=== PATIENT | female | born 1985 | race American Indian/Alaskan Native ===

== ENCOUNTER 2016-07-31 09:26 | Inpatient (IN) | payer MEDICAID ==
[2016-07-31] MEDS ORDERED: MINERAL OIL PO PRN (10:18)
[2016-07-31] MEDS ORDERED: NARCAN 0.4 MG/1 ML IV PRN (10:18)
[2016-07-31] MEDS ORDERED: STADOL IV PRN (10:18)
[2016-07-31] MEDS ORDERED: ZOFRAN IV PRN (10:18)
[2016-07-31] MEDS ORDERED: XYLOCAINE 2% INFILTRATI ONE (10:18)
--- NOTE | 2016-07-31 10:32 | History and Physical Report ---
History of Present Illness Date of examination: 07/31/16 Date of admission: 07/31/2016 Chief complaint: Decreased Movement, Bloody Vaginal Mucous, and CTX Pains. History of present illness: Early entry to care; co-managed with [facility] due to maternal obesity. course complicated by lapses in care, URI in the second trimester, and two UTIs. Past History Past Medical History: no pertinent history Past Surgical History: no surgical history Family/Genetic History: diabetes (Father), heart disease (Father), hypertension (Father) Social history: no significant social history, single - Obstetrical History Expected Date of Delivery: 07/30/16 Actual Gestation: 40 Week(s) 1 Day(s) : 4 Para: 3 Number of Living Children: 3 #1 Infant Gender: Male year: 2,[birth year] Birthweight: 3.572 kg Method of Delivery: Vaginal Gestational age at delivery: 39 Complications: none #2 Infant Gender: Female Birthweight: 3.118 kg Method of Delivery: Vaginal Gestational age at delivery: 37 Complications: none #3 Gender: Male year: 2,011 Birthweight: 4.082 kg Method of Delivery: Vaginal Gestational age at delivery: 40 Complications: none Medications and Allergies Allergies Allergy/AdvReac Type Severity Reaction Status Date / Time No Known Allergies Allergy Unverified 07/31/16 09:41 Active Meds: Active Medications Butorphanol Tartrate (Stadol) 2 mg IV Q2H PRN PRN Reason: Pain , Severe (7-10) Ephedrine Sulfate (Ephedrine Sulfate) 10 mg IV Q2M PRN PRN Reason: Hypotension Stop: 07/31/16 10:23 Lactated Ringer's (Lactated Ringers) 1,000 mls @ 125 mls/hr IV DIRECT PATTY Oxytocin/Sodium Chloride (Pitocin/Ns 20 Unit/1000ml Drip) 20 units in 1,000 mls @ 125 mls/hr IV DIRECT PATTY Oxytocin/Sodium Chloride (Pitocin/Ns 30 Unit/500ml) 30 units in 500 mls @ 4 mls /hr IV TITR PATTY PRN Reason: Protocol Lidocaine (Xylocaine 2%) 20 ml INFILTRATI ONCE ONE Stop: 07/31/16 10:19 Mineral Oil (Mineral Oil) 30 ml PO QHS PRN PRN Reason: Constipation Naloxone HCl (Narcan 0.4 Mg/1 Ml) 0.1 mg IV Q2MIN PRN PRN Reason: Res Rate </= 8 or 02 SAT < 92% Ondansetron HCl (Zofran) 4 mg IV Q8H PRN PRN Reason: Nausea And Vomiting Terbutaline Sulfate (Brethine) 0.25 mg SUB-Q ONCE PRN PRN Reason: Hyperstimulation/Hypertonicity Stop: 07/31/16 10:19 Terbutaline Sulfate (Brethine) 0.25 mg IVP ONCE PRN PRN Reason: Hyperstimulation/Hypertonicity Stop: 07/31/16 10:19 Review of Systems All systems: negative - Vital Signs Vital signs: Vital Signs Pulse Pulse Ox 81 98 07/31/16 09:46 07/31/16 09:46 Temp Pulse Resp BP Pulse Ox 73 137/81 98 07/31/16 10:22 07/31/16 09:50 07/31/16 10:22 - Physical Exam Breasts: Positive: normal Cardiovascular: Regular rate Lungs: Positive: Clear to auscultation, Normal air movement Abdomen: Positive: normal appearance, soft, normal bowel sounds Genitourinary (Female): Positive: normal external genitalia, normal perenium Vagina: Positive: other (small amount of bloody show) Uterus: Positive: enlarged Anus/Rectum: Positive: normal perianal skin Extremities: Positive: edema (+2 non-pitting bilateral pedal edema) - Obstetrical FHR: category 1 Uterine Contraction Monitor Mode: External Cervical Dilatation: 3.5 (VTX, Intact) Cervical Effacement Percentage: 60 station: -3 Uterine Contraction Pattern: Irregular Uterine Contraction Intensity: Mild Results All other labs normal. Assessment and Plan A: IUP at 40 1/7 Weeks Category I Tracing Maternal obesity Decreased Movement Early Labor GBS Negative P: Admit to L&D per routine orders Pitocin Augmentation
[2016-07-31] MEDS ORDERED: BRETHINE SUB-Q PRN (11:17)
[2016-07-31] MEDS ORDERED: BRETHINE IVP PRN (11:17)
[2016-07-31] MEDS ORDERED: TORADOL ONE (11:30)
[2016-07-31] MEDS ORDERED: PITOCin/NS 20 UNIT/1000ML DRIP 20 UNITS/1,000 ML BAG IV SCH ×2 (12:00→23:45)
[2016-07-31] MEDS: LACTATED RINGERS 1,000 ML IV SCH ×3 (12:55→18:51)
[2016-07-31] MEDS: PITOCin/NS 30 UNIT/500ML 30 UNITS/500 ML BAG IV SCH ×2 (13:00→15:18)
--- NOTE | 2016-07-31 14:12 | Progress Note ---
Assessment and Plan A: IUP at 40 1/7 Weeks Category I Tracing Maternal obesity Meconium-Stained Fluids GBS Negative P: Internals x 2 Pitocin Augmentation Subjective - Subjective Date of service: 07/31/16 Interval history: Early entry to care; co-managed with [facility] due to maternal obesity. course complicated by lapses in care, URI in the second trimester, and two UTIs. Objective - Vital Signs Vital Signs: Vital Signs - 12hr 07/31/16 07/31/16 07/31/16 09:46 09:50 09:51 Temperature Pulse Rate 81 72 86 Pulse Rate [ Left] Respiratory Rate Blood Pressure 137/81 Blood Pressure [Left Arm] O2 Sat by Pulse 98 98 Oximetry 07/31/16 07/31/16 07/31/16 09:56 10:02 10:07 Temperature Pulse Rate 75 85 79 Pulse Rate [ Left] Respiratory Rate Blood Pressure Blood Pressure [Left Arm] O2 Sat by Pulse 97 97 97 Oximetry 07/31/16 07/31/16 07/31/16 10:12 10:17 10:22 Temperature Pulse Rate 93 H 78 73 Pulse Rate [ Left] Respiratory Rate Blood Pressure Blood Pressure [Left Arm] O2 Sat by Pulse 98 98 98 Oximetry 07/31/16 07/31/16 07/31/16 11:00 11:05 11:10 Temperature Pulse Rate 66 73 78 Pulse Rate [ Left] Respiratory Rate Blood Pressure Blood Pressure [Left Arm] O2 Sat by Pulse 97 98 98 Oximetry 07/31/16 07/31/16 07/31/16 11:15 11:19 11:25 Temperature Pulse Rate 72 71 76 Pulse Rate [ Left] Respiratory Rate Blood Pressure Blood Pressure [Left Arm] O2 Sat by Pulse 96 96 97 Oximetry 07/31/16 07/31/16 07/31/16 11:30 11:34 11:40 Temperature Pulse Rate 74 75 74 Pulse Rate [ Left] Respiratory Rate Blood Pressure Blood Pressure [Left Arm] O2 Sat by Pulse 97 96 97 Oximetry 07/31/16 07/31/16 07/31/16 11:45 11:50 11:55 Temperature Pulse Rate 65 74 72 Pulse Rate [ Left] Respiratory Rate Blood Pressure Blood Pressure [Left Arm] O2 Sat by Pulse 98 96 99 Oximetry 07/31/16 07/31/16 07/31/16 12:00 12:05 12:10 Temperature Pulse Rate 73 78 70 Pulse Rate [ Left] Respiratory Rate Blood Pressure Blood Pressure [Left Arm] O2 Sat by Pulse 99 97 98 Oximetry 07/31/16 07/31/16 07/31/16 12:15 12:19 12:23 Temperature Pulse Rate 74 74 90 Pulse Rate [ Left] Respiratory Rate Blood Pressure Blood Pressure [Left Arm] O2 Sat by Pulse 97 98 91 Oximetry 07/31/16 07/31/16 07/31/16 12:25 12:30 12:32 Temperature Pulse Rate 85 74 78 Pulse Rate [ Left] Respiratory Rate Blood Pressure Blood Pressure [Left Arm] O2 Sat by Pulse 96 97 94 Oximetry 07/31/16 07/31/16 07/31/16 12:35 12:38 12:39 Temperature Pulse Rate 78 77 80 Pulse Rate [ Left] Respiratory Rate Blood Pressure 147/75 Blood Pressure [Left Arm] O2 Sat by Pulse 92 93 Oximetry 07/31/16 07/31/16 07/31/16 12:40 12:45 12:50 Temperature Pulse Rate 87 79 78 Pulse Rate [ Left] Respiratory Rate Blood Pressure Blood Pressure [Left Arm] O2 Sat by Pulse 96 97 97 Oximetry 07/31/16 07/31/16 07/31/16 12:55 13:00 13:06 Temperature Pulse Rate 71 87 83 Pulse Rate [ Left] Respiratory Rate Blood Pressure Blood Pressure [Left Arm] O2 Sat by Pulse 99 98 98 Oximetry 07/31/16 07/31/16 07/31/16 13:07 13:11 13:16 Temperature 97.5 F L Pulse Rate 69 80 Pulse Rate [ 83 Left] Respiratory 16 Rate Blood Pressure Blood Pressure 147/75 [Left Arm] O2 Sat by Pulse 96 97 98 Oximetry 07/31/16 07/31/16 07/31/16 13:24 13:26 13:32 Temperature Pulse Rate 76 70 73 Pulse Rate [ Left] Respiratory Rate Blood Pressure Blood Pressure [Left Arm] O2 Sat by Pulse 80 L 99 96 Oximetry 07/31/16 07/31/16 07/31/16 13:44 13:45 13:50 Temperature Pulse Rate 76 Pulse Rate [ Left] Respiratory Rate Blood Pressure Blood Pressure [Left Arm] O2 Sat by Pulse 77 L 77 L 99 Oximetry 07/31/16 07/31/16 07/31/16 13:51 13:55 13:56 Temperature Pulse Rate 80 69 52 L Pulse Rate [ Left] Respiratory Rate Blood Pressure Blood Pressure [Left Arm] O2 Sat by Pulse 88 94 90 Oximetry 07/31/16 07/31/16 14:00 14:05 Temperature Pulse Rate 71 73 Pulse Rate [ Left] Respiratory Rate Blood Pressure Blood Pressure [Left Arm] O2 Sat by Pulse 99 98 Oximetry - Exam Breasts: normal Cardiovascular: Regular rate Lungs: Clear to auscultation, Normal air movement Abdomen: Present: normal appearance, soft, normal bowel sounds Uterus: Present: normal, firm, fundal height above umbilicus FHR: category 1 Uterine Contraction Monitor Mode: Internal Cervical Dilatation: 4 (Moderate amount of thick green meconium stained fluids upon AROM at 1400) Cervical Effacement Percentage: 70 station: -2 Uterine Contraction Pattern: Irregular Uterine Tone Measurement Phase: Resting Uterine Contraction Intensity: Moderate Extremities: edema
[2016-07-31] MEDS ORDERED: ePHEDrine SULFATE ONE (16:58)
[2016-07-31 17:17] LABS: Hemoglobin 9.7 gm/dl (10.1-14.3); Mean Corpuscular HGB Conc 31 % (30-34); Mean Corpuscular Volume 72 fl (79-97); Platelet Count 236 K/mm3 (140-440); Red Blood Count 4.27 M/mm3 (3.65-5.03); Red Cell Distribution Width 16.8 % (13.2-15.2)
[2016-07-31 17:20] LABS: Mean Corpuscular Hemoglobin 23 pg (28-32)
[2016-07-31] MEDS ORDERED: ePHEDrine SULFATE IV PRN (18:24)
[2016-07-31] MEDS ORDERED: NARCAN 2 MG/2 ML IV PRN (18:24)
--- NOTE | 2016-07-31 18:24 | Anesthesia Consultation ---
Anesthesia Consult and Med Hx Date of service: 07/31/16 - Airway Anesthetic Teeth Evaluation: Good ROM Head & Neck: Adequate Mental/Hyoid Distance: Adequate Mallampati Class: Class II Intubation Access Assessment: Good - Pulmonary Exam CTA: Yes - Cardiac Exam Cardiac Exam: No Murmur - Pre-Operative Health Status ASA Pre-Surgery Classification: ASA2 Proposed Anesthetic Plan: Epidural - Pulmonary Hx Asthma: No COPD: No Hx Pneumonia: No - Cardiovascular System Hx Hypertension: No - Central Nervous System Hx Seizures: No Hx Psychiatric Problems: No - Endocrine Hx Renal Disease: No Hx End Stage Renal Disease: No Hx Hypothyroidism: No Hx Hyperthyroidism: No - Hematic Hx Anemia: No Hx Sickle Cell Disease: No - Other Systems Hx Alcohol Use: No
[2016-07-31] MEDS: ePHEDrine SULFATE IV PRN ×2 (18:34→18:36)
[2016-07-31] MEDS ORDERED: fentaNYL-BUPIV 2 MCG/ML-0.125% 200 MCG/100 ML BAG EPIDURAL SCH (19:00)
[2016-07-31] MEDS ORDERED: PEPCID IV ONE ×2 (19:23→23:10)
[2016-07-31] MEDS ORDERED: REGLAN ONE (19:23)
[2016-07-31] MEDS ORDERED: BICITRA ONE (19:23)
[2016-07-31] MEDS ORDERED: ANCEF/STERILE WATER 2 GM/20 ML 2 GM/20 ML SYRINGE IV ONE (19:23)
[2016-07-31] MEDS ORDERED: NACL 0.9% 1000 ML 1,000 ML ONE (19:41)
--- NOTE | 2016-07-31 19:47 | Progress Note ---
Assessment and Plan A: IUP at 40 1/7 Weeks Category II Tracing Maternal obesity Meconium-Stained Fluids GBS Negative P: Amnioinfusion Continue Pitocin Augmentation Subjective - Subjective Date of service: 07/31/16 Interval history: Early entry to care; co-managed with [facility] due to maternal obesity. course complicated by lapses in care, URI in the second trimester, and two UTIs. Patient reports: other (Resting well under epidural) Objective - Vital Signs Vital Signs: Vital Signs - 12hr 07/31/16 07/31/16 07/31/16 09:46 09:50 09:51 Temperature Pulse Rate 81 72 86 Pulse Rate [ Left] Respiratory Rate Blood Pressure 137/81 Blood Pressure [Left Arm] O2 Sat by Pulse 98 98 Oximetry 07/31/16 07/31/16 07/31/16 09:56 10:02 10:07 Temperature Pulse Rate 75 85 79 Pulse Rate [ Left] Respiratory Rate Blood Pressure Blood Pressure [Left Arm] O2 Sat by Pulse 97 97 97 Oximetry 07/31/16 07/31/16 07/31/16 10:12 10:17 10:22 Temperature Pulse Rate 93 H 78 73 Pulse Rate [ Left] Respiratory Rate Blood Pressure Blood Pressure [Left Arm] O2 Sat by Pulse 98 98 98 Oximetry 07/31/16 07/31/16 07/31/16 11:00 11:05 11:10 Temperature Pulse Rate 66 73 78 Pulse Rate [ Left] Respiratory Rate Blood Pressure Blood Pressure [Left Arm] O2 Sat by Pulse 97 98 98 Oximetry 07/31/16 07/31/16 07/31/16 11:15 11:19 11:25 Temperature Pulse Rate 72 71 76 Pulse Rate [ Left] Respiratory Rate Blood Pressure Blood Pressure [Left Arm] O2 Sat by Pulse 96 96 97 Oximetry 07/31/16 07/31/16 07/31/16 11:30 11:34 11:40 Temperature Pulse Rate 74 75 74 Pulse Rate [ Left] Respiratory Rate Blood Pressure Blood Pressure [Left Arm] O2 Sat by Pulse 97 96 97 Oximetry 07/31/16 07/31/16 07/31/16 11:45 11:50 11:55 Temperature Pulse Rate 65 74 72 Pulse Rate [ Left] Respiratory Rate Blood Pressure Blood Pressure [Left Arm] O2 Sat by Pulse 98 96 99 Oximetry 07/31/16 07/31/16 07/31/16 12:00 12:05 12:10 Temperature Pulse Rate 73 78 70 Pulse Rate [ Left] Respiratory Rate Blood Pressure Blood Pressure [Left Arm] O2 Sat by Pulse 99 97 98 Oximetry 07/31/16 07/31/16 07/31/16 12:15 12:19 12:23 Temperature Pulse Rate 74 74 90 Pulse Rate [ Left] Respiratory Rate Blood Pressure Blood Pressure [Left Arm] O2 Sat by Pulse 97 98 91 Oximetry 07/31/16 07/31/16 07/31/16 12:25 12:30 12:32 Temperature Pulse Rate 85 74 78 Pulse Rate [ Left] Respiratory Rate Blood Pressure Blood Pressure [Left Arm] O2 Sat by Pulse 96 97 94 Oximetry 07/31/16 07/31/16 07/31/16 12:35 12:38 12:39 Temperature Pulse Rate 78 77 80 Pulse Rate [ Left] Respiratory Rate Blood Pressure 147/75 Blood Pressure [Left Arm] O2 Sat by Pulse 92 93 Oximetry 07/31/16 07/31/16 07/31/16 12:40 12:45 12:50 Temperature Pulse Rate 87 79 78 Pulse Rate [ Left] Respiratory Rate Blood Pressure Blood Pressure [Left Arm] O2 Sat by Pulse 96 97 97 Oximetry 07/31/16 07/31/16 07/31/16 12:55 13:00 13:06 Temperature Pulse Rate 71 87 83 Pulse Rate [ Left] Respiratory Rate Blood Pressure Blood Pressure [Left Arm] O2 Sat by Pulse 99 98 98 Oximetry 07/31/16 07/31/16 07/31/16 13:07 13:11 13:16 Temperature 97.5 F L Pulse Rate 69 80 Pulse Rate [ 83 Left] Respiratory 16 Rate Blood Pressure Blood Pressure 147/75 [Left Arm] O2 Sat by Pulse 96 97 98 Oximetry 07/31/16 07/31/16 07/31/16 13:24 13:26 13:32 Temperature Pulse Rate 76 70 73 Pulse Rate [ Left] Respiratory Rate Blood Pressure Blood Pressure [Left Arm] O2 Sat by Pulse 80 L 99 96 Oximetry 07/31/16 07/31/16 07/31/16 13:44 13:45 13:50 Temperature Pulse Rate 76 Pulse Rate [ Left] Respiratory Rate Blood Pressure Blood Pressure [Left Arm] O2 Sat by Pulse 77 L 77 L 99 Oximetry 07/31/16 07/31/16 07/31/16 13:51 13:55 13:56 Temperature Pulse Rate 80 69 52 L Pulse Rate [ Left] Respiratory Rate Blood Pressure Blood Pressure [Left Arm] O2 Sat by Pulse 88 94 90 Oximetry 07/31/16 07/31/16 07/31/16 14:00 14:05 14:10 Temperature Pulse Rate 71 73 78 Pulse Rate [ Left] Respiratory Rate Blood Pressure Blood Pressure [Left Arm] O2 Sat by Pulse 99 98 99 Oximetry 07/31/16 07/31/16 07/31/16 14:15 14:20 14:25 Temperature Pulse Rate 71 64 65 Pulse Rate [ Left] Respiratory Rate Blood Pressure Blood Pressure [Left Arm] O2 Sat by Pulse 98 100 99 Oximetry 07/31/16 07/31/16 07/31/16 14:30 14:35 14:40 Temperature Pulse Rate 65 70 74 Pulse Rate [ Left] Respiratory Rate Blood Pressure Blood Pressure [Left Arm] O2 Sat by Pulse 98 98 97 Oximetry 07/31/16 07/31/16 07/31/16 14:45 14:50 14:55 Temperature Pulse Rate 69 73 75 Pulse Rate [ Left] Respiratory Rate Blood Pressure Blood Pressure [Left Arm] O2 Sat by Pulse 98 97 97 Oximetry 07/31/16 07/31/16 07/31/16 15:00 15:05 15:10 Temperature Pulse Rate 72 65 74 Pulse Rate [ Left] Respiratory Rate Blood Pressure Blood Pressure [Left Arm] O2 Sat by Pulse 98 98 98 Oximetry 07/31/16 07/31/16 07/31/16 15:15 15:20 15:25 Temperature Pulse Rate 72 74 63 Pulse Rate [ Left] Respiratory Rate Blood Pressure Blood Pressure [Left Arm] O2 Sat by Pulse 98 97 97 Oximetry 07/31/16 07/31/16 07/31/16 15:30 15:35 15:39 Temperature Pulse Rate 65 71 69 Pulse Rate [ Left] Respiratory Rate Blood Pressure Blood Pressure [Left Arm] O2 Sat by Pulse 98 97 97 Oximetry 07/31/16 07/31/16 07/31/16 15:44 15:50 15:55 Temperature Pulse Rate 63 79 77 Pulse Rate [ Left] Respiratory 20 Rate Blood Pressure Blood Pressure [Left Arm] O2 Sat by Pulse 96 98 98 Oximetry 07/31/16 07/31/16 07/31/16 16:17 18:14 18:15 Temperature Pulse Rate 75 99 H 88 Pulse Rate [ Left] Respiratory Rate Blood Pressure 130/60 211/93 139/71 Blood Pressure [Left Arm] O2 Sat by Pulse 96 Oximetry 07/31/16 07/31/16 07/31/16 18:18 18:21 18:23 Temperature Pulse Rate 101 H 102 H 92 H Pulse Rate [ Left] Respiratory Rate Blood Pressure 118/53 105/50 99/50 Blood Pressure [Left Arm] O2 Sat by Pulse 99 Oximetry 07/31/16 07/31/16 07/31/16 18:24 18:25 18:27 Temperature Pulse Rate 86 109 H 103 H Pulse Rate [ Left] Respiratory Rate Blood Pressure 89/41 75/35 Blood Pressure [Left Arm] O2 Sat by Pulse 99 Oximetry 07/31/16 07/31/16 07/31/16 18:29 18:31 18:33 Temperature Pulse Rate 88 104 H 103 H Pulse Rate [ Left] Respiratory Rate Blood Pressure 77/42 76/39 81/43 Blood Pressure [Left Arm] O2 Sat by Pulse 100 Oximetry 07/31/16 07/31/16 07/31/16 18:34 18:35 18:36 Temperature Pulse Rate 95 H 87 69 Pulse Rate [ Left] Respiratory Rate Blood Pressure 93/51 114/57 Blood Pressure [Left Arm] O2 Sat by Pulse 99 Oximetry 07/31/16 07/31/16 07/31/16 18:38 18:39 18:41 Temperature Pulse Rate 74 78 79 Pulse Rate [ Left] Respiratory Rate Blood Pressure 132/60 126/56 Blood Pressure [Left Arm] O2 Sat by Pulse 100 Oximetry 07/31/16 07/31/16 07/31/16 18:43 18:44 18:45 Temperature Pulse Rate 90 76 91 H Pulse Rate [ Left] Respiratory Rate Blood Pressure 116/56 115/57 Blood Pressure [Left Arm] O2 Sat by Pulse 100 Oximetry 07/31/16 07/31/16 07/31/16 18:47 18:49 18:52 Temperature Pulse Rate 85 94 H 79 Pulse Rate [ Left] Respiratory Rate Blood Pressure 116/57 123/56 Blood Pressure [Left Arm] O2 Sat by Pulse 100 100 Oximetry 07/31/16 07/31/16 07/31/16 18:53 18:57 18:58 Temperature Pulse Rate 83 78 90 Pulse Rate [ Left] Respiratory Rate Blood Pressure 114/56 113/56 Blood Pressure [Left Arm] O2 Sat by Pulse 100 Oximetry 07/31/16 07/31/16 07/31/16 19:02 19:06 19:09 Temperature Pulse Rate 85 122 H 66 Pulse Rate [ Left] Respiratory Rate Blood Pressure 147/85 Blood Pressure [Left Arm] O2 Sat by Pulse 99 100 Oximetry 07/31/16 07/31/16 07/31/16 19:14 19:16 19:19 Temperature Pulse Rate 77 78 83 Pulse Rate [ Left] Respiratory Rate Blood Pressure 141/63 Blood Pressure [Left Arm] O2 Sat by Pulse 100 100 Oximetry 07/31/16 07/31/16 07/31/16 19:24 19:29 19:34 Temperature Pulse Rate 78 76 69 Pulse Rate [ Left] Respiratory Rate Blood Pressure Blood Pressure [Left Arm] O2 Sat by Pulse 100 100 100 Oximetry 07/31/16 07/31/16 19:36 19:39 Temperature Pulse Rate 74 75 Pulse Rate [ Left] Respiratory Rate Blood Pressure 125/59 Blood Pressure [Left Arm] O2 Sat by Pulse 100 Oximetry - Exam Breasts: normal Cardiovascular: Regular rate Lungs: Clear to auscultation, Normal air movement Abdomen: Present: normal appearance, soft, normal bowel sounds Uterus: Present: normal, firm, fundal height above umbilicus FHR: category 2 FHR comments: FHR: 150, moderate varability, +accels, +multiple varabile decels, CTX are irregular Uterine Contraction Monitor Mode: Internal Cervical Dilatation: 4 Cervical Effacement Percentage: 70 station: -2 Uterine Contraction Pattern: Irregular Uterine Contraction Intensity: Mild Extremities: edema - Labs Labs: Abnormal Labs 07/31/16 11:25 Hgb 9.7 L MCV 72 L MCH 23 L RDW 16.8 H Laboratory Results - last 24 hr 07/31/16 07/31/16 11:25 11:25 WBC 10.0 RBC 4.27 Hgb 9.7 L Hct 31.0 MCV 72 L MCH 23 L MCHC 31 RDW 16.8 H Plt Count 236 Blood Type A POSITIVE Antibody Screen TNR SUREKHA Antibody Screen Negative
[2016-07-31] MEDS ORDERED: NACL 0.9% 1000 ML 1,000 ML VG SCH (20:00)
[2016-07-31] MEDS ORDERED: TYLENOL PO PRN (21:01)
[2016-07-31] MEDS ORDERED: POLYCILLIN/NS 2 GM/100 ML 2 GM/100 ML BAG IV ONE (22:00)
[2016-07-31] MEDS ORDERED: NACL P/F VIAL (10 ML) 10 ML ONE (22:26)
[2016-07-31] MEDS ORDERED: BICITRA PO ONE (23:10)
[2016-07-31] MEDS ORDERED: WATER FOR IRRIG STERILE IR ONE (23:10)
[2016-07-31] MEDS ORDERED: REGLAN IV ONE (23:10)
[2016-07-31] MEDS ORDERED: NACL 0.9% IR ONE (23:10)
[2016-07-31] MEDS ORDERED: MORPHINE ONE ×2 (23:37)
[2016-07-31] MEDS ORDERED: ANCEF/STERILE WATER 2 GM/20 ML 2 GM/20 ML SYRINGE IV NR (23:45)
[2016-07-31] MEDS ORDERED: LACTATED RINGERS 1,000 ML IV SCH (23:45)
[2016-07-31] MEDS ORDERED: XYLOCAINE MPF 2% ONE ×4 (23:46)
[2016-07-31] MEDS ORDERED: NEO SYNEPHRINE ONE (23:57)
[2016-07-31 23:58] LABS: ISTAT Base Excess -5; ISTAT HCO3 22.3; ISTAT PCO2 51.6 (35-45); ISTAT PH 7.243 (7.35-7.45); ISTAT PO2 14 (80-105); ISTAT SO2 13; ISTAT TCO2 24
[2016-07-31 23:58] LABS: ISTAT Base Excess -7; ISTAT HCO3 20.6; ISTAT PH 7.258 (7.35-7.45); ISTAT PO2 22 (80-105); ISTAT SO2 29; ISTAT TCO2 22
--- NOTE | 2016-08-01 00:28 | Operative Report ---
Operative Report Operative Report: Date of procedure: 07/31/2016 Pre-operative diagnosis: 1. Intrauterine at 40-1/7 weeks 2. Nonreassuring surveillance 3. Meconium fluid 4. Morbid obesity Post-operative diagnosis: Same Procedure name(s): Primary low transverse section Surgeon: Donte Reid MD [employer] Rebuilder: None Anesthesia: Epidural anesthesia by Dr. Li Geiger EBL: 1000 mL's Findings: A 3631 g male infant Apgars 8 at 1 minute 9 at 5 minutes. Nuchal cord 1. Thick meconium fluid. Normal uterus. Normal tubes and ovaries bilaterally. Procedure: After the patient was prepped and draped in usual sterile fashion, and after satisfactory level of epidural anesthesia was obtained, the skin knife was used to make a transverse skin incision. The incision was excised down to layer of the fascia, which was nicked in the midline and extended laterally using the Bovie cautery. The rectus muscles were dissected off the rectus fascia both superiorly and inferiorly. The rectus bellies in the midline, and the peritoneum was entered under direct visualization. The peritoneal incision was extended superiorly and inferiorly. A bladder flap was created and the bladder blade was then placed. The uterus was scored in a curvilinear linear fashion, entered in the midline revealing meconium amniotic fluid. The 's head was delivered onto the surgical field, nuchal cord 1 reduced, and the oropharynx and nasopharynx were bulb suctioned. The rest of the infant's body was delivered, cord was doubly clamped and cut and the was handed to the waiting respiratory team. Cord gas was then obtained. The placenta was manually removed from the uterus, and the uterus removed from its normal anatomical position. After gentle uterine lavage, the incision was inspected and found to have an extension on the right lower uterine segment. It was then closed in 2 layers using 0 Vicryl suture in a running interlocking fashion, the second layer imbricating the first. After good hemostasis was achieved, copious amounts or irrigation was performed, and the gutters were suctioned free of blood and blood clots. Tisseel sealant was sprayed across the uterine incision. The uterus was then returned to its normal anatomical position, and after excellent hemostasis assured, the peritoneum was reapproximated using 3-0 Vicryl suture in a running interlocking fashion, and then the rectus muscles were reapproximated using 3-0 Vicryl suture in a figure- of-eight configuration. The fascia was then reapproximated using 0 Vicryl suture in running interlocking fashion. The subcutaneous layer was made hemostatic using Bovie cautery, the Tisseel sealant was sprayed across the fascial incision and the skin edges reapproximated using 4-0 Vicryl suture in a subcuticular fashion. Patient tolerated the procedure well was transported to recovery in stable condition.
[2016-08-01] MEDS ORDERED: PHENERGAN PR PRN ×2 (00:30→00:38)
[2016-08-01] MEDS ORDERED: TUCKS PAD TP PRN (00:30)
[2016-08-01] MEDS ORDERED: NARCAN 0.4 MG/1 ML IV PRN ×2 (00:30→00:38)
[2016-08-01] MEDS ORDERED: TORADOL IV PRN (00:30)
[2016-08-01] MEDS ORDERED: NORCO 5/325 PO PRN (00:30)
[2016-08-01] MEDS ORDERED: SENOKOT PO PRN (00:30)
[2016-08-01] MEDS ORDERED: MYLICON PO PRN (00:30)
[2016-08-01] MEDS ORDERED: MILK OF MAGNESIA PO PRN (00:30)
[2016-08-01] MEDS ORDERED: TYLENOL PO PRN (00:30)
[2016-08-01] MEDS ORDERED: LANSINOH TP PRN (00:30)
[2016-08-01] MEDS ORDERED: DILAUDID IV PRN ×2 (00:38)
[2016-08-01] MEDS ORDERED: PHENERGAN PO PRN (00:38)
[2016-08-01] MEDS ORDERED: ZOFRAN IV PRN (00:38)
--- NOTE | 2016-08-01 00:38 | Post Anesthesia Evaluation ---
- Post Anesthesia Evaluation Patient Participated: Yes Airway Patent: Yes Stable Respiratory Function: Yes Nausea/Vomiting: No Temp > 96.8F: Yes Pain Manageable: Yes Adequeate Hydration: Yes Anesthesia Complications: No Block Receding Appropriately: Yes
[2016-08-01] MEDS ORDERED: PITOCin/NS 20 UNIT/1000ML DRIP 20 UNITS/1,000 ML BAG IV SCH (01:00)
[2016-08-01] MEDS ORDERED: SODIUM CHLORIDE FLUSH SYRINGE 10 ML IV NR (01:00)
[2016-08-01] MEDS ORDERED: SODIUM CHLORIDE FLUSH SYRINGE 10 ML IV PRN (01:00)
[2016-08-01] MEDS ORDERED: fentaNYL-BUPIV 2 MCG/ML-0.125% 200 MCG/100 ML BAG EPIDURAL SCH (01:00)
[2016-08-01] MEDS ORDERED: D5LR 1,000 ML IV SCH (01:00)
[2016-08-01] MEDS ORDERED: POLYCILLIN/NS 1 GM/50 ML 1 GM/50 ML BAG IV SCH (02:00)
[2016-08-01] MEDS: BENADRYL IV PRN ×4 (03:13→22:31)
[2016-08-01] MEDS: ANCEF/NS 1 GM/50 ML 1 GM/50 ML BAG IV SCH ×2 (05:36→16:20)
--- NOTE | 2016-08-01 10:27 | Progress Note ---
Assessment and Plan A: POD #1 Stable P: Follow Routine PostOp orders Advance Diet with +Flatus Subjective - Subjective Date of service: 08/01/16 Interval history: Early entry to care; co-managed with [facility] due to maternal obesity. course complicated by lapses in care, URI in the second trimester, and two UTIs. Patient reports: appetite normal, voiding normally, pain well controlled, ambulating normally : doing well, bottle feeding Objective - Vital Signs Latest vital signs: Vital Signs Temp Pulse Pulse Resp BP BP Pulse Ox 08/01/16 08:30 97.6 F 80 20 138/78 08/01/16 03:00 98.6 F 93 H 18 123/47 08/01/16 01:21 18 08/01/16 01:16 77 15 108/46 97 08/01/16 01:10 69 22 108/46 98 08/01/16 01:06 73 108/46 98 08/01/16 01:00 104/35 99 08/01/16 00:56 75 20 104/35 99 08/01/16 00:50 86 21 119/62 98 08/01/16 00:46 75 19 119/62 08/01/16 00:40 74 25 H 129/40 100 08/01/16 00:36 88 20 129/40 99 08/01/16 00:33 98.6 F 18 108/46 08/01/16 00:30 78 19 99 08/01/16 00:28 99 07/31/16 23:06 103 H 98 07/31/16 23:01 78 99 07/31/16 22:53 95 H 100 07/31/16 22:46 94 H 99 07/31/16 22:41 65 171/84 07/31/16 22:40 69 97 07/31/16 22:35 51 L 98 07/31/16 22:30 66 97 07/31/16 22:25 109 H 98 07/31/16 22:24 82 142/70 07/31/16 22:20 73 97 07/31/16 22:15 95 H 97 07/31/16 22:10 75 98 07/31/16 22:09 80 149/69 07/31/16 22:05 76 97 07/31/16 22:00 86 97 07/31/16 21:55 84 96 07/31/16 21:54 73 147/67 07/31/16 21:50 79 97 07/31/16 21:45 74 99 07/31/16 21:39 72 137/70 97 07/31/16 21:34 81 97 07/31/16 21:29 81 97 07/31/16 21:24 78 142/69 98 07/31/16 21:19 80 97 07/31/16 21:14 77 97 07/31/16 21:10 102 H 94 07/31/16 21:09 90 135/67 97 07/31/16 21:06 100.3 F H 89 18 134/68 07/31/16 21:04 88 97 07/31/16 20:59 78 98 07/31/16 20:54 79 134/68 97 07/31/16 20:51 73 79 L 07/31/16 20:49 79 97 07/31/16 20:44 75 99 07/31/16 20:41 73 131/56 07/31/16 20:39 77 99 07/31/16 20:34 77 100 07/31/16 20:29 75 100 07/31/16 20:27 73 96/62 07/31/16 20:24 80 99 07/31/16 20:19 71 100 07/31/16 20:14 68 100 07/31/16 20:09 67 100 07/31/16 20:05 72 126/60 07/31/16 20:04 66 100 07/31/16 19:59 69 100 07/31/16 19:56 71 125/58 07/31/16 19:54 67 100 07/31/16 19:49 70 100 07/31/16 19:48 97.1 F L 71 18 142/63 100 07/31/16 19:46 74 142/63 07/31/16 19:44 73 100 07/31/16 19:39 75 100 07/31/16 19:36 74 125/59 07/31/16 19:34 69 100 07/31/16 19:29 76 100 07/31/16 19:24 78 100 07/31/16 19:19 83 100 07/31/16 19:16 78 141/63 07/31/16 19:14 77 100 07/31/16 19:09 66 100 07/31/16 19:06 122 H 147/85 07/31/16 19:02 85 99 07/31/16 18:58 90 113/56 07/31/16 18:57 78 100 07/31/16 18:53 83 114/56 07/31/16 18:52 79 100 07/31/16 18:49 94 H 123/56 07/31/16 18:47 85 116/57 100 07/31/16 18:45 91 H 115/57 07/31/16 18:44 76 100 07/31/16 18:43 90 116/56 07/31/16 18:41 79 126/56 07/31/16 18:39 78 100 07/31/16 18:38 74 132/60 07/31/16 18:36 69 114/57 07/31/16 18:35 87 93/51 07/31/16 18:34 95 H 99 07/31/16 18:33 103 H 81/43 07/31/16 18:31 104 H 76/39 07/31/16 18:29 88 77/42 100 07/31/16 18:27 103 H 75/35 07/31/16 18:25 109 H 89/41 07/31/16 18:24 86 99 07/31/16 18:23 92 H 99/50 07/31/16 18:21 102 H 105/50 07/31/16 18:18 101 H 118/53 99 07/31/16 18:15 88 139/71 07/31/16 18:14 99 H 211/93 96 07/31/16 16:17 75 130/60 07/31/16 15:55 77 20 98 07/31/16 15:50 79 98 07/31/16 15:44 63 96 07/31/16 15:39 69 97 07/31/16 15:35 71 97 07/31/16 15:30 65 98 07/31/16 15:25 63 97 07/31/16 15:20 74 97 07/31/16 15:15 72 98 07/31/16 15:10 74 98 07/31/16 15:05 65 98 07/31/16 15:00 72 98 07/31/16 14:55 75 97 07/31/16 14:50 73 97 07/31/16 14:45 69 98 07/31/16 14:40 74 97 07/31/16 14:35 70 98 07/31/16 14:30 65 98 07/31/16 14:25 65 99 07/31/16 14:20 64 100 07/31/16 14:15 71 98 07/31/16 14:10 78 99 07/31/16 14:05 73 98 07/31/16 14:00 71 99 07/31/16 13:56 52 L 90 07/31/16 13:55 69 94 07/31/16 13:51 80 88 07/31/16 13:50 76 99 07/31/16 13:45 77 L 07/31/16 13:44 77 L 07/31/16 13:32 73 96 07/31/16 13:26 70 99 07/31/16 13:24 76 80 L 07/31/16 13:16 80 98 07/31/16 13:11 69 97 07/31/16 13:07 97.5 F L 83 16 147/75 96 07/31/16 13:06 83 98 07/31/16 13:00 87 98 07/31/16 12:55 71 99 07/31/16 12:50 78 97 07/31/16 12:45 79 97 07/31/16 12:40 87 96 07/31/16 12:39 80 147/75 07/31/16 12:38 77 93 07/31/16 12:35 78 92 07/31/16 12:32 78 94 07/31/16 12:30 74 97 07/31/16 12:25 85 96 07/31/16 12:23 90 91 07/31/16 12:19 74 98 07/31/16 12:15 74 97 07/31/16 12:10 70 98 07/31/16 12:05 78 97 07/31/16 12:00 73 99 07/31/16 11:55 72 99 07/31/16 11:50 74 96 07/31/16 11:45 65 98 07/31/16 11:40 74 97 07/31/16 11:34 75 96 07/31/16 11:30 74 97 07/31/16 11:25 76 97 07/31/16 11:19 71 96 07/31/16 11:15 72 96 07/31/16 11:10 78 98 07/31/16 11:05 73 98 07/31/16 11:00 66 97 Intake and Output 07/31/16 08/01/16 08/01/16 22:59 06:59 14:59 Intake Total 2300 745 Output Total 250 450 300 Balance 2050 295 -300 Intake: IV 2300 625 ANCEF/NS 1 GM/50 ML 1 gm 50 In 50 ml @ 100 mls/hr IV Q8H PATTY Rx#:[id number] Lactated Ringers 1,000 ml 2000 @ 125 mls/hr IV DIRECT PATTY Rx#:[id number] NaCl 0.9% 1000 ml 1,000 300 ml @ As Directed VG DIRECT PATTY Rx#:[id number] PITOCin/NS 20 UNIT/1000ML 575 DRIP 20 units In 1,000 ml @ As Directed IV TITR PATTY Rx#:[id number] Oral 120 Output: Urine 250 450 300 Indwelling Catheter 250 300 Uretheral (Steel) 450 Other: Total, Intake Amount 120 Total, Output Amount 250 300 # Voids Indwelling Catheter 1 Estimated Blood Loss 1,000 - Exam Breasts: Present: normal Cardiovascular: Present: Regular rate Lungs: Present: Clear to auscultation, Normal air movement Abdomen: Present: normal appearance, soft, normal bowel sounds Uterus: Present: normal, firm, fundal height below umbilicus Extremities: Present: normal Incision: Present: normal, dry, dressed - Labs Labs: Abnormal lab results 07/31/16 07/31/16 07/31/16 Range/Units 11:25 23:46 23:49 Hgb 9.7 L (10.1-14.3) gm/dl MCV 72 L (79-97) fl MCH 23 L (28-32) pg RDW 16.8 H (13.2-15.2) % POC ABG pH 7.258 L 7.243 L (7.35-7.45) POC ABG pCO2 46.0 H 51.6 H (35-45) POC ABG pO2 22 L 14 L (80-105)
[2016-08-01] MEDS: FEOSOL PO SCH (11:01)
[2016-08-01] MEDS: PRENATAL VITAMIN PO SCH (11:01)
[2016-08-01 12:40] LABS: Hematocrit 23.1 % (30.3-42.9); Hemoglobin 7.2 gm/dl (10.1-14.3)
[2016-08-01] MEDS: PERCOCET 5/325 PO PRN ×2 (14:20→22:31)
--- NOTE | 2016-08-01 14:43 | Progress Note ---
Subjective Date of service: 08/01/16 Interval history: 1st POD after Patient is in the bed, relatively comfortable. Pain is well controlled with pain meds. No residual neurological deficit. Pruritus is controlled with Benadryl. No anesthesia complications Objective - Constitutional Vitals: Vital Signs - 12hr 08/01/16 08/01/16 08/01/16 03:00 08:30 12:10 Temperature 98.6 F 97.6 F 99.1 F Pulse Rate [ 93 H 80 82 Left] Respiratory 18 20 18 Rate Blood Pressure 123/47 138/78 118/76 [Left Arm] - Labs CBC & Chem 7: 08/01/16 12:17 Labs: Abnormal lab results 07/31/16 07/31/16 07/31/16 Range/Units 11:25 23:46 23:49 Hgb 9.7 L (10.1-14.3) gm/dl Hct (30.3-42.9) % MCV 72 L (79-97) fl MCH 23 L (28-32) pg RDW 16.8 H (13.2-15.2) % POC ABG pH 7.258 L 7.243 L (7.35-7.45) POC ABG pCO2 46.0 H 51.6 H (35-45) POC ABG pO2 22 L 14 L (80-105) 08/01/16 Range/Units 12:17 Hgb 7.2 L (10.1-14.3) gm/dl Hct 23.1 L D (30.3-42.9) % MCV (79-97) fl MCH (28-32) pg RDW (13.2-15.2) % POC ABG pH (7.35-7.45) POC ABG pCO2 (35-45) POC ABG pO2 (80-105)
[2016-08-01] MEDS: MOTRIN PO PRN (18:19)
[2016-08-02] MEDS ORDERED: M-M-R II VACCINE SUB-Q ONE (00:31)
[2016-08-02] MEDS: PERCOCET 5/325 PO PRN ×4 (03:58→21:11)
[2016-08-02] MEDS: BENADRYL IV PRN (05:40)
[2016-08-02] MEDS ORDERED: BOOSTRIX IM ONE (06:00)
--- NOTE | 2016-08-02 08:59 | Progress Note ---
Assessment and Plan A: POD #2 P: Plan discharge in am Subjective - Subjective Date of service: 08/02/16 Principal diagnosis: Patient reports: appetite normal : doing well Objective - Vital Signs Latest vital signs: Vital Signs Temp Pulse Pulse Resp BP 08/01/16 23:40 98.6 F 108 H 18 140/70 08/01/16 20:40 98.9 F 117 H 18 135/83 08/01/16 16:59 99.8 F H 84 20 148/70 08/01/16 12:10 99.1 F 82 18 118/76 Intake and Output 08/01/16 08/02/16 08/02/16 22:59 06:59 14:59 Intake Total 360 480 Output Total 450 Balance -90 480 Intake: Oral 360 480 Output: Urine 450 Indwelling Catheter 250 Void 200 Other: Total, Intake Amount 240 240 Total, Output Amount 200 # Voids Void 1 - Exam Breasts: Present: deferred, mass Lungs: Present: Clear to auscultation Abdomen: Present: soft Vulva: both: normal Uterus: Present: fundal height below umbilicus Extremities: Present: normal Deep Tendon Reflex Grade: Normal +2 Incision: Present: normal, intact - Labs Labs: Abnormal lab results 08/01/16 Range/Units 12:17 Hgb 7.2 L (10.1-14.3) gm/dl Hct 23.1 L D (30.3-42.9) %
--- NOTE | 2016-08-02 09:01 | Discharge Summary ---
Providers - Providers Date of Admission: 07/31/16 09:27 Date of discharge: 08/03/16 Attending physician: SARATH GEE MD Primary care physician: SARATH GEE MD Hospitalization Reason for admission: induction of labor Delivery: Procedure: section Episiotomy: none Laceration: none Incision: intact complications: none Discharge diagnosis: IUP at term delivered baby: male Condition at discharge: Good Disposition: DISCHARGED TO HOME OR SELFCARE Plan - Discharge Medications Prescriptions: Ferrous Sulfate [Feosol 325 MG tab] 325 mg PO BID #60 tablet HYDROcodone/APAP 5-325 [[place] 5/325] 1 each PO Q6HR PRN #30 tablet PRN Reason: Pain Ibuprofen [Motrin] 800 mg PO Q8HR PRN #30 tablet PRN Reason: Moder Pain Unrelieved By [place] Vit W-Ca,Fe,FA(<1 mg) [ Vitamins] 1 each PO DAILY #30 tablet - Provider Discharge Summary Activity: routine, no sex for 6 weeks, no heavy lifting 4 weeks Diet: routine Instructions: routine Additional instructions: [] Smoking cessation referral if applicable(refer to patient education folder for contact #) [] Refer to [facility] Booklet Call your doctor immediately for: * Fever > 100.5 * Heavy vaginal bleeding ( >1 pad per hour) * Severe persistent headache * Shortness of breath * Reddened, hot, painful area to leg or breast * Drainage or odor from incision. * Keep incision clean and dry at all times and follow doctor's instructions regarding bathing/showering - Follow up plan Follow up: [facility] [Provider Group] - 14 Days
[2016-08-02] MEDS: PRENATAL VITAMIN PO SCH (09:36)
[2016-08-02] MEDS: FEOSOL PO SCH (09:36)
[2016-08-02] MEDS: MOTRIN PO PRN ×2 (09:36→21:10)
[2016-08-03] MEDS: PERCOCET 5/325 PO PRN (06:07)
[2016-08-03] MEDS: MOTRIN PO PRN ×2 (06:08→12:47)
[2016-08-03] MEDS: FEOSOL PO SCH (12:47)
[2016-08-03] MEDS: PRENATAL VITAMIN PO SCH (12:47)
[2016-08-03 14:40] VITALS: BP 116/66
== END 2016-08-03 14:20 | disposition home or self-care (01) | DRG 765 ==
LOC: TRG 09:26 → LD 09:27 → OB 08-01 02:23
PROVIDERS: ADMIT Obstetrics & Gynecology; ATTEND Obstetrics & Gynecology
PROC: 10D00Z1 Extraction of Products of Conception, Low, Open Approach (ICD-10-PCS; principal; 2016-07-31)
DX: O36.8130 Decreased fetal movements, third trimester, not applicable or unspecified (principal); Z68.43 Body mass index [BMI] 50.0-59.9, adult; O99.214 Obesity complicating childbirth; O77.0 Labor and delivery complicated by meconium in amniotic fluid; O76 Abnormality in fetal heart rate and rhythm complicating labor and delivery; E66.01 Morbid (severe) obesity due to excess calories; Z3A.40 40 weeks gestation of pregnancy; Z37.0 Single live birth; Z83.3 Family history of diabetes mellitus; Z82.49 Family history of ischemic heart disease and other diseases of the circulatory system
CPT/HCPCS: 36415; 82803; 82962; 85014; 85018; 85027; 86850; 86900; 86901; 88307; 99211; A6250; G0463; J0290; J0595; J0690; J1170; J1200; J1885; J2270; J2370; J2405; J2590; J2765; J7030; J7120